=== PATIENT | female | born 1975 | race Hispanic/Latino ===

== ENCOUNTER 2018-06-04 13:40 | Emergency (ER) | payer SELFPAY ==
[2018-06-04 15:57] LABS: BASO # 0.1 K/uL (0.0-0.2); BASO % 1.2 % (0.0-2.0); EOS # 0.2 K/uL (0.0-0.7); HEMOGLOBIN 11.9 g/dL (11.0-16.0); LYMPH # 2.2 K/uL (1.0-4.3); LYMPH % 28.8 % (20.0-40.0); MEAN CELL VOLUME 80.6 fL (81.0-99.0); MEAN CORPUSCULAR HEMOGLOBIN 26.9 pg (27.0-31.0); MEAN CORPUSCULAR HGB CONC 33.4 g/dL (33.0-37.0); MEAN PLATELET VOLUME 7.8 fL (7.2-11.7); MONO # 0.3 K/uL (0.0-0.8); MONO % 3.9 % (0.0-10.0); NEUT # 4.9 K/uL (1.8-7.0); NEUT % 64.1 % (50.0-75.0); NRBC % 0.1 % (0.0-2.0); RBC 4.42 Mil/uL (3.80-5.20); RED CELL DISTRIBUTION WIDTH 15.5 % (11.5-14.5); WHITE BLOOD COUNT 7.6 K/uL (4.8-10.8)
[2018-06-04 16:04] LABS: SQUAMOUS EPITHIAL 2 /hpf (0-5); URINE BACTERIA RARE (<OCC); URINE BILIRUBIN NEGATIVE (NEGATIVE); URINE BLOOD NEGATIVE (NEGATIVE); URINE CLARITY Hazy (Clear); URINE COLOR Amber (YELLOW); URINE GLUCOSE (UA) NORMAL (Normal); URINE LEUKOCYTE ESTERASE 3+ Leu/uL (Negative); URINE PROTEIN NEGATIVE (NEGATIVE); URINE UROBILINOGEN NORMAL mg/dL (0.2-1.0)
[2018-06-04 16:12] LABS: ALB/GLOB RATIO 0.8 (1.0-2.1); ALBUMIN 3.8 g/dL (3.5-5.0); ALT/SGPT 28 U/L (9-52); AST/SGOT 39 U/L (14-36); BLOOD UREA NITROGEN 6 mg/dL (7-17); CALCIUM 9.1 mg/dl (8.6-10.4); GFR NON-AFRICAN AMERICAN > 60
[2018-06-04 16:14] LABS: BARBITURATES, UR NEGATIVE (NEGATIVE); BENZODIAZEPINES, UR NEGATIVE (NEGATIVE); PHENCYCLIDINE, UR NEGATIVE (NEGATIVE)
[2018-06-04 16:16] LABS: OPIATES, UR POSITIVE (NEGATIVE)
--- NOTE | 2018-06-04 17:10 | C.PDOC ---
History Of Present Illness 42 year old female presents to the ED for evaluation of suicide ideation that has worsened since yesterday. Patient admits to using speed ball and heroine, last drug use was 3am last night, and denies usage of other substances. Denies homicidal ideation, hallucinations, fever, nausea, vomiting, and any other associated symptoms. <Jennifer Wild - Last Filed: 06/05/18 19:23> <Tenzin Platt - Last Filed: 06/04/18 21:38> History Per: Patient History/Exam Limitations: no limitations Onset/Duration Of Symptoms: Days Current Symptoms Are (Timing): Still Present <Jennifer Wild - Last Filed: 06/05/18 19:23> Time Seen by Provider: 06/04/18 14:27 Chief Complaint (Nursing): Substance Abuse Past Medical History Vital Signs: Last Vital Signs Temp 98.5 F 06/04/18 17:16 Pulse 67 06/04/18 17:16 Resp 18 06/04/18 17:16 BP 120/79 06/04/18 17:16 Pulse Ox 99 06/04/18 17:16 <Tenzin Platt - Last Filed: 06/04/18 21:38> Reviewed: Historical Data, Nursing Documentation, Vital Signs Vital Signs: Last Vital Signs Temp 98.0 F 06/04/18 14:10 Pulse 79 06/04/18 14:10 Resp 22 06/04/18 14:10 BP 127/80 06/04/18 14:10 Pulse Ox 100 06/04/18 14:10 - Medical History PMH: Bipolar Disorder Family History: States: Unknown Family Hx - Social History Hx Alcohol Use: No Hx Substance Use: Yes - Immunization History Hx Tetanus Toxoid Vaccination: No Hx Influenza Vaccination: No Hx Pneumococcal Vaccination: No <Jennifer Wild - Last Filed: 06/05/18 19:23> Review Of Systems Constitutional: Negative for: Fever, Chills Gastrointestinal: Negative for: Nausea, Vomiting Psych: Positive for: Suicidal ideation. Negative for: Other (homicidal ideation. hallucinations. ) <Jennifer Wild - Last Filed: 06/05/18 19:23> Physical Exam - Physical Exam Appears: Non-toxic, No Acute Distress Skin: Normal Color, Warm, Dry Head: Atraumatic, Normacephalic Eye(s): bilateral: Normal Inspection Oral Mucosa: Moist Neck: Normal ROM, Supple Chest: Symmetrical, No Deformity Cardiovascular: Rhythm Regular, No Murmur Respiratory: Normal Breath Sounds, No Rales, No Rhonchi, No Wheezing Gastrointestinal/Abdominal: Normal Exam, Soft Extremity: Normal ROM (x4) Neurological/Psych: Oriented x3, Normal Speech, Normal Motor, Normal Sensation, Normal Reflexes Gait: Steady <SugeyJennifer asif Oneal - Last Filed: 06/05/18 19:23> ED Course And Treatment - Laboratory Results Result Diagrams: 06/04/18 15:15 06/04/18 15:15 ECG: Interpreted By Me, Viewed By Me ECG Rhythm: Sinus Rhythm (80), Nonspecific Changes Pulse Ox Interpretation: Normal - Radiology CXR: Interpreted by Me, Viewed By Me CXR Interpretation: No: Infiltrates, Fracture, Pnemothorax Progress Note: Pt is medically cleared for transfer to [facility] facility. pt was accepted by dr canas at [facility] <Tenzin Platt - Last Filed: 06/04/18 21:38> - Laboratory Results Result Diagrams: 06/04/18 15:15 06/04/18 15:15 O2 Sat by Pulse Oximetry: 100 (RA) Pulse Ox Interpretation: Normal <SugeytonyshaheenJennifer lennon Oneal Last Filed: 06/05/18 19:23> Medical Decision Making Medical Decision Making: Plan: --Blood sent. --Urinalysis. --Given Macrobid for UTI <Jennifer Wild Oneal - Last Filed: 06/05/18 19:23> Disposition Counseled Patient/Family Regarding: Studies Performed, Diagnosis - Disposition Disposition Time: 19:00 <Tenzin Platt - Last Filed: 06/04/18 21:38> <Jennifer Wild Oneal - Last Filed: 06/05/18 19:23> - Disposition Disposition: OTHER INSTITUTION Condition: FAIR Forms: [facility] (Arabic) - Clinical Impression Clinical Impression: Major depressive disorder, recurrent, unspecified - Scribe Statement The provider has reviewed the documentation as recorded by the Scribe (Jeanna Tamayo) Provider Attestation: All medical record entries made by the Scribe were at my direction and personally dictated by me. I have reviewed the chart and agree that the record accurately reflects my personal performance of the history, physical exam, medical decision making, and the department course for this patient. I have also personally directed, reviewed, and agree with the discharge instructions and disposition. <Jennifer Wild - Last Filed: 06/05/18 19:23>
[2018-06-04 23:11] VITALS: BP 119/71; PULSE 62; RESP 18; TEMP 97.4
--- NOTE | 2018-06-05 08:12 | RAD ---
Chest x-ray single frontal view HISTORY: Psychiatric clearance. COMPARISON: None available. Findings: Bibasilar breast and nipple shadows. Mild venous congestion. Mild bilateral hilar prominence. Heart size within limits. Impression: Bibasilar breast and nipple shadows. Mild venous congestion. Mild bilateral hilar prominence. Heart size within limits.
[2018-06-05 19:23] VITALS: O2SAT 100
== END 2018-06-04 23:37 | disposition designated cancer center or children's hospital (05) ==
LOC: C.ER 13:40
DX: F33.9 Major depressive disorder, recurrent, unspecified (principal); N39.0 Urinary tract infection, site not specified
CPT/HCPCS: 71045; 80053; 81001; 83735; 84100; 85025; 93005; 99285; G0480

== ENCOUNTER 2019-01-01 16:51 | Inpatient (IN) | payer MEDICAID ==
--- NOTE | 2019-01-01 18:41 | C.PDOC ---
History Of Present Illness 43 y/o female presents to the ER requesting detox from heroin. Patient states that she injects heroine and cocaine and her last use was today 4am. Denies having suicidal ideation, homicidal ideation, and other complaints. Time Seen by Provider: 01/01/19 17:40 Chief Complaint (Nursing): Psychiatric Evaluation History Per: Patient History/Exam Limitations: no limitations Onset/Duration Of Symptoms: Days Current Symptoms Are (Timing): Still Present Severity: Moderate Past Medical History Reviewed: Historical Data, Nursing Documentation, Vital Signs Vital Signs: Last Vital Signs Temp 98.5 F 01/01/19 17:05 Pulse 80 01/01/19 17:05 Resp 20 01/01/19 17:05 BP 133/82 01/01/19 17:05 Pulse Ox 98 01/01/19 17:05 Primary Care Provider: FAMILY PROVIDER,NO - Medical History PMH: Bipolar Disorder Denies: Diabetes, Hepatitis, HIV, HTN, Chronic Kidney Disease, Seizures, Sexually Transmitted Disease Other Surgeries: Hx of surgeries - [facility] GROUP PSYCHOTHERAPY (06/04/18) INDIV PSYCHOTHERAPY FOR SUBSTANCE ABUSE, COGNITIV BEHAVIORAL (06/04/18) INDIVIDUAL PSYCHOTHERAPY, COGNITIVE-BEHAVIORAL (06/04/18) Family History: States: No Known Family Hx, Unknown Family Hx - Social History Hx Alcohol Use: No Hx Substance Use: No - Immunization History Hx Tetanus Toxoid Vaccination: No Hx Influenza Vaccination: No Hx Pneumococcal Vaccination: No Review Of Systems Except As Marked, All Systems Reviewed And Found Negative. Constitutional: Negative for: Fever, Chills Cardiovascular: Negative for: Chest Pain Respiratory: Negative for: Shortness of Breath Neurological: Positive for: Headache Physical Exam - Physical Exam Appears: Non-toxic, No Acute Distress Skin: Normal Color, Warm, Dry Head: Atraumatic, Normacephalic Eye(s): bilateral: Normal Inspection Nose: Normal Oral Mucosa: Moist Neck: Supple Chest: Symmetrical Cardiovascular: Rhythm Regular Respiratory: Normal Breath Sounds, No Rales, No Rhonchi, No Wheezing Gastrointestinal/Abdominal: Normal Exam, Soft, No Tenderness, No Guarding, No Rebound Neurological/Psych: Oriented x3, Normal Speech ED Course And Treatment O2 Sat by Pulse Oximetry: 98 (RA) Pulse Ox Interpretation: Normal Medical Decision Making Medical Decision Making: Plan: --Labs --UA Disposition - Disposition Disposition Time: 19:04 Condition: STABLE Forms: [facility] (Macedonian) - POA Present On Arrival: None - Clinical Impression Clinical Impression: Polysubstance abuse - Scribe Statement The provider has reviewed the documentation as recorded by the Scribe Joan Barron Provider Attestation: All medical record entries made by the Scribe were at my direction and personally dictated by me. I have reviewed the chart and agree that the record accurately reflects my personal performance of the history, physical exam, medical decision making, and the department course for this patient. I have also personally directed, reviewed, and agree with the discharge instructions and disposition. Physician Patient Turnover Patient Signed Over To: Bhavin Peck Handoff Comments: pending labs and dispo
[2019-01-01 19:06] LABS: BASO # 0.1 K/uL (0.0-0.2); BASO % 1.2 % (0.0-2.0); EOS # 0.2 K/uL (0.0-0.7); HEMOGLOBIN 11.7 g/dL (11.0-16.0); LYMPH # 2.6 K/uL (1.0-4.3); LYMPH % 29.3 % (20.0-40.0); MEAN CORPUSCULAR HEMOGLOBIN 27.6 pg (27.0-31.0); MEAN CORPUSCULAR HGB CONC 33.3 g/dL (33.0-37.0); MEAN PLATELET VOLUME 8.3 fL (7.2-11.7); MONO # 0.5 K/uL (0.0-0.8); MONO % 6.1 % (0.0-10.0); NEUT # 5.5 K/uL (1.8-7.0); NEUT % 61.4 % (50.0-75.0); NRBC % 0.2 % (0.0-2.0); RBC 4.23 Mil/uL (3.80-5.20); RED CELL DISTRIBUTION WIDTH 15.6 % (11.5-14.5); WHITE BLOOD COUNT 8.9 K/uL (4.8-10.8)
[2019-01-01 19:12] LABS: MEAN CELL VOLUME 82.8 fL (81.0-99.0); SQUAMOUS EPITHIAL 2 /hpf (0-5); URINE BACTERIA RARE (<OCC); URINE BILIRUBIN NEGATIVE (NEGATIVE); URINE BLOOD NEGATIVE (NEGATIVE); URINE CLARITY Clear (Clear); URINE COLOR Yellow (YELLOW); URINE GLUCOSE (UA) NORMAL (Normal); URINE LEUKOCYTE ESTERASE 2+ Leu/uL (Negative); URINE PROTEIN NEGATIVE (NEGATIVE); URINE UROBILINOGEN NORMAL mg/dL (0.2-1.0)
[2019-01-01 19:16] LABS: BLOOD UREA NITROGEN 12 mg/dL (7-17); GFR NON-AFRICAN AMERICAN > 60
[2019-01-01 19:17] LABS: ALB/GLOB RATIO 0.9 (1.0-2.1); ALBUMIN 4.2 g/dL (3.5-5.0); ALT/SGPT 42 U/L (9-52); AST/SGOT 46 U/L (14-36); CALCIUM 9.3 mg/dl (8.6-10.4)
[2019-01-01 19:28] LABS: BARBITURATES, UR NEGATIVE (NEGATIVE); BENZODIAZEPINES, UR NEGATIVE (NEGATIVE); PHENCYCLIDINE, UR NEGATIVE (NEGATIVE)
[2019-01-01 19:30] LABS: OPIATES, UR POSITIVE (NEGATIVE)
--- NOTE | 2019-01-01 20:21 | PCM.BM ---
<KrissChristopher - Last Filed: 01/01/19 20:19> Treatment Plan Problems - Problems identified on initial assessmt denial Date Initiated: 01/01/19 Time Initiated: 20:19 Assessment reference: NA Status: Active defensive coping Date Initiated: 01/01/19 Time Initiated: 20:20 Assessment reference: NA Status: Active chronic low self esteem Date Initiated: 01/01/19 Time Initiated: 20:21 Assessment reference: NA Status: Active Treatment assets and liabiliti Patient Assests: cooperative, ADL independent, negotiates basic needs Patient Liabilities: substance abuse - Milieu Protocol Maintain good personal hygiene: daily Encourage regular showers, daily Remind patient to perform daily oral care, daily Assist patient to perform ADL's Conduct patient checks and document Observation sheet: Q15 minutes Maintain personal safety: every shift Educate patient to report safety concerns to staff, every shift Monitor environment for contraband/sharps Medication safety: Monitor for expected outcome, potential side effects: every shift, Assess barriers to learning: every shift, Assess readiness for medication education: every shift <Zac Lofton - Last Filed: 01/03/19 13:17> - Diagnosis (1) Opioid use disorder Status: Acute Interventions: 01/03/19 13:16 * Assess 7x/week regarding severity of withdrawal * Educate regarding risks, benefits, side effects and alternatives of medications * Use Motivational Interviewing for abstinence * Use CBT for relapse prevention * Medication management for withdrawal symptoms * Encourage medication assisted treatment * (2) Major depressive disorder, recurrent, unspecified Status: Acute Interventions: 01/03/19 13:17 * Assess/adjust medications daily and /or as needed * See patient on an individual basis 7x/week to assess symptoms of depression * Monitor for side effects & effectiveness of medications *
[2019-01-01] MEDS ORDERED: Magnesium Hydroxide Susp 30 ml UD PO PRN (22:07)
--- NOTE | 2019-01-02 09:57 | PCM.PSYCH ---
Initial Psychiatric Evaluation - Initial Psychiatric Evaluation Type of Admission: Voluntary Legal Status: Capacity Chief Complaint (in patient's own words): ""I;m sick" History of Present Illness and Precipitating Events: She is switched form OBS to INPAT bc she was withdrawing bad and received treatment. The pt is seen, chart reviewed, and case discussed. Pt is a 43 year old female , with 3 children living with pts mother, unemployed, and pt is currently living with boyfriend in [place] and has psych history of manic bipolar disorder, depression, suicidal ideation, and PTSD. This is the first time pt has been admitted to detox unit. She was never admitted before to detox, rehab, or sought suboxone treatment. She has been hospitalized in [facility] in 2018 for suicidal ideation. Pt uses 30 bags/day of heroin IV for the past 3 years, but has started 5 years ago. Her last use was yesterday 01/01/19 at night. She uses 1 gram/day of cocaine IV for the past year. Her last use was yesterday 01/01/29 at noon. Pt smokes 1 pdd for the past 20 years. She denies alcohol or other drug use. She feels restless and has headache, N/V, chills, night sweats, and back pain. COWS was 12 and increasing. She had an OD within 6 months. She denies thoughts of hurting herself or others. Feels very depressed, though. SHe had SI recently and also last year She plans to go to [facility] 2 week program and transfer to something [facility] after that. Past psych hx: Bipolar, depression, and PTSD Fam psych hx: Sister has been to [facility] detox. Her mother has anxiety. PMHx: denies No current meds Current Medications: Active Medications Generic Name Dose Route Start Last Admin Trade Name Freq PRN Reason Stop Dose Admin Clonidine HCl 0.1 mg 01/01/19 22:07 Catapres PO Q4 PRN COWS Score More or Equal to 5 Hydroxyzine HCl 50 mg 01/01/19 22:08 Atarax PO Q6H PRN Anxiety Ibuprofen 600 mg 01/01/19 22:07 Motrin Tab PO Q6 PRN Pain, moderate (4-7) Loperamide HCl 2 mg 01/01/19 22:07 Imodium PO Q8 PRN Diarrhea Magnesium Hydroxide 30 ml 01/01/19 22:07 Milk Of Magnesia PO 01/04/19 10:01 BID PRN Constipation Methadone HCl 0 mg 01/02/19 10:00 Methadone PO 01/07/19 09:59 Q24H HEAVEN Taper Mirtazapine 15 mg 01/02/19 22:00 Remeron PO HS HEAVEN Ondansetron HCl 4 mg 01/01/19 22:07 Zofran Tab PO Q8 PRN Nausea/Vomiting Pneumococcal Polyvalent Vaccine 0.5 ml 01/04/19 10:00 Pneumovax 23 Vaccine IM 01/04/19 10:01 .ONCE ONE Quetiapine Fumarate 100 mg 01/02/19 09:56 Seroquel PO HS PRN Insomnia Trazodone HCl 100 mg 01/01/19 22:09 Desyrel PO HS PRN Sleep Past Psychiatric History - Past Psychiatric History Previous Treatment History: Inpatient Pertinent Medical Hx (Current Medical&Sleep Prob, Allergies): Allergies Allergy/AdvReac Type Severity Reaction Status Date / Time No Known Allergies Allergy Verified 01/01/19 17:08 No Known Home Med 01/01/19 Review of Systems - Psychiatric Psychiatric: Abnormal Sleep Pattern, Anhedonia, Anxiety, Change in Appetite, Depression, Difficulty Concentrating. absent: Hallucinations, Homicidal Ideation, Suicidal Ideation Mental Status Examination - Personal Presentation Personal Presentation: Looks older than stated age (much older) - Affect Affect: Constricted - Reliability in Providing Information Reliability in Providing Information: Good - Speech Speech: Organized - Mood Mood: Depressed, Anxious - Formal Thought Process Formal Thought Process: No Impairment - Cognitive Functions Orientation: Person, Place, Situation, Time Sensorium: Drowsy Attention/Concentration: Easily distracted Estimate of Intelligence: Below average Judgement: Intact, as evidence by: Insight regarding need for hospitalization Memory: Recent intact, as evidence by: Ability to recall events of the day, Remote impaired as evidenced by: Inability to recall sig life events - Risk Risk: Withdrawal, Diminished functioning - Strength & Assets Inventory Strength & Assets Inventory: Cooperative DSM 5 DX - DSM 5 DSM 5 Diagnosis: Opioid withdrawal Opioid use d/o - severe Major depression, recurrent, severe PTSD Cocaine use d/o - severe - Recommended/Plan of Treatment Treatment Recommendations and Plan of Treatment: Taper with methadone Remeron for depression Seroquel same + insomnia Gabapentin for augmentation if needed As needed medications All risks, benefits and alternatives of the meds discussed, and the pt agreed and understood. Attend groups and activities Supportive therapy and psychoeducation [place] for abstinence CBT for relapse prevention Encourage MAT Refer to rehab or IOP, and self-help groups Teach healthy lifestyle methods, i.e. diet, exercise, meditation Smoking cessation with [place] Nicotine patch if needed 34 min Projected ELOS: 4 days - Smoking Cessation Smoking Cessation Initiated: Yes
--- NOTE | 2019-01-03 11:44 | PCM.PYCHPN ---
Psychiatric Progress Note - Psychiatric Progress Note Patient seen today, length of contact: 16 min Patient Chief Complaint: "I can't sleep at all" Problems Identified/Issues Discussed: The pt is seen, chart reviewed, case discussed with staff. Support and psychoeducation given, CBT and KS used briefly Pt is improving slowly and needs more time, still has ongoing symptoms. No SEs from medications, risks discussed. After care discussed Medication Change: Yes (detox changes daily) Medical Record Reviewed: Yes Mental Status Examination - Cognitive Function Orientation: Person, Place, Situation, Time Memory: Impaired Attention: Poor Concentration: Poor Association: WNL Fund of Knowledge: Poor - Mood Mood: Depressed, Anxious - Affect Affect: Constricted - Speech Speech: Appropriate - Formal Thought Process Formal Thought Process: No Impairment - Suicidal Ideation Suicidal Ideation: No - Homicidal Ideation Homicidal Ideation: No Goal/Treatment Plan - Goal/Treatment Plan Need for Continued Stay: Discharge may exacerbated symptoms, Severe functional impairment Progress Toward Problem(s) and Goals/Treatment Plan: Taper with methadone Remeron for depression Seroquel same + insomnia Gabapentin for augmentation if needed As needed medications All risks, benefits and alternatives of the meds discussed, and the pt agreed and understood. Attend groups and activities Supportive therapy and psychoeducation [place] for abstinence CBT for relapse prevention Encourage MAT Refer to rehab or IOP, and self-help groups Teach healthy lifestyle methods, i.e. diet, exercise, meditation Smoking cessation with [place] Nicotine patch if needed
[2019-01-04] MEDS ORDERED: Buprenorphine Hydrochloride 2 mg SL ONE ×2 (03:20→14:08)
[2019-01-04] MEDS ORDERED: Pneumococcal 23-Valent Vaccine IM ONE (10:00)
--- NOTE | 2019-01-04 12:11 | PCM.PYCHPN ---
Psychiatric Progress Note - Psychiatric Progress Note Patient seen today, length of contact: 16 min Patient Chief Complaint: "I can't sleep at all" Problems Identified/Issues Discussed: The pt is seen again, chart reviewed, and case is discussed with the team. The pt denies any side-effects from meds. Attends activities and groups, brief individual therapy provided Not ready for discharge due to ongoing symptoms and high relapse risk. After care discussed again. She was about to leave AMA last night but her BF convinced her to stay, bond writer also gave reassurance and prn meds to help her calm down. She was having panic attacks Medication Change: Yes (detox changes daily) Medical Record Reviewed: Yes Mental Status Examination - Cognitive Function Orientation: Person, Place, Situation, Time Memory: Impaired Attention: Poor Concentration: Poor Association: WNL Fund of Knowledge: Poor - Mood Mood: Depressed, Anxious - Affect Affect: Constricted - Speech Speech: Appropriate - Formal Thought Process Formal Thought Process: No Impairment - Suicidal Ideation Suicidal Ideation: No - Homicidal Ideation Homicidal Ideation: No Goal/Treatment Plan - Goal/Treatment Plan Need for Continued Stay: Discharge may exacerbated symptoms, Severe functional impairment Progress Toward Problem(s) and Goals/Treatment Plan: Taper with methadone Remeron for depression Seroquel same + insomnia Gabapentin for augmentation if needed As needed medications All risks, benefits and alternatives of the meds discussed, and the pt agreed and understood. Attend groups and activities Supportive therapy and psychoeducation [place] for abstinence CBT for relapse prevention Encourage MAT Refer to rehab or IOP, and self-help groups Teach healthy lifestyle methods, i.e. diet, exercise, meditation Smoking cessation with [place] Nicotine patch if needed
--- NOTE | 2019-01-06 02:05 | PCM.PYCHPN ---
Psychiatric Progress Note - Psychiatric Progress Note Patient seen today, length of contact: 16 min Patient Chief Complaint: "I can't sleep at all" Problems Identified/Issues Discussed: The pt is seen again, chart reviewed, and case is discussed with the team. The pt denies any side-effects from meds. Attends activities and groups, brief individual therapy provided Not ready for discharge due to ongoing symptoms and high relapse risk. After care discussed again. She was about to leave AMA last night but her BF convinced her to stay, senior underwriter also gave reassurance and prn meds to help her calm down. She was having panic attacks Medication Change: Yes (detox changes daily) Medical Record Reviewed: Yes Mental Status Examination - Cognitive Function Orientation: Person, Place, Situation, Time Memory: Impaired Attention: Poor Concentration: Poor Association: WNL Fund of Knowledge: Poor - Mood Mood: Depressed, Anxious - Affect Affect: Constricted - Speech Speech: Appropriate - Formal Thought Process Formal Thought Process: No Impairment - Suicidal Ideation Suicidal Ideation: No - Homicidal Ideation Homicidal Ideation: No Goal/Treatment Plan - Goal/Treatment Plan Need for Continued Stay: Discharge may exacerbated symptoms, Severe functional impairment Progress Toward Problem(s) and Goals/Treatment Plan: Taper with methadone Remeron for depression Seroquel same + insomnia Gabapentin for augmentation if needed As needed medications All risks, benefits and alternatives of the meds discussed, and the pt agreed and understood. Attend groups and activities Supportive therapy and psychoeducation [place] for abstinence CBT for relapse prevention Encourage MAT Refer to rehab or IOP, and self-help groups Teach healthy lifestyle methods, i.e. diet, exercise, meditation Smoking cessation with [place] Nicotine patch if needed
[2019-01-06 06:49] VITALS: O2SAT 99
--- NOTE | 2019-01-06 08:54 | PCM.PYCHDC ---
Mental Status Examination - Mental Status Examination Orientation: Person Discharge Summary - Discharge Note Consultations:: List each consultation separately and include: 1. Reason for request. 2. Findings. 3. Follow-up Summary of Hospital Course include:: 1. Description of specific treatment plan utilized for patients during their course of treatmen. 2. Summarize the time- course for resolution of acute symptoms and/or regressed behaviors. 3. Describe issues identified and worked on during hospitalization. 4. Describe medication utilized. 5. Describe medical problems identified and treated. 6. Reassessment of suicide risk Summary of Hospital Course: She is switched form OBS to INPAT bc she was withdrawing bad and received treatment. The pt is seen, chart reviewed, and case discussed. Pt is a 43 year old female , with 3 children living with pts mother, unemployed, and pt is currently living with boyfriend in [place] and has psych history of manic bipolar disorder, depression, suicidal ideation, and PTSD. This is the first time pt has been admitted to detox unit. She was never admitted before to detox, rehab, or sought suboxone treatment. She has been hospitalized in [facility] in 2018 for suicidal ideation. Pt uses 30 bags/day of heroin IV for the past 3 years, but has started 5 years ago. Her last use was yesterday 01/01/19 at night. She uses 1 gram/day of cocaine IV for the past year. Her last use was yesterday 01/01/29 at noon. Pt smokes 1 pdd for the past 20 years. She denies alcohol or other drug use. She feels restless and has headache, N/V, chills, night sweats, and back pain. COWS was 12 and increasing. She had an OD within 6 months. She denies thoughts of hurting herself or others. Feels very depressed, though. SHe had SI recently and also last year She plans to go to [facility] 2 week program and transfer [facility] after that. Past psych hx: Bipolar, depression, and PTSD Fam psych hx: Sister has been to [facility] detox. Her mother has anxiety. PMHx: denies No current meds She went to [facility]. Tried to leave AMA twice but agreed to stay - Diagnosis (1) Opioid use disorder Current Visit: Yes Status: Acute (2) Major depressive disorder, recurrent, unspecified Current Visit: No Status: Acute - Final Diagnosis (DSM 5) Condition upon Discharge: STABLE Disposition: HOME/ ROUTINE Follow-up Treatment Plan: Taper with methadone Remeron for depression Seroquel same + insomnia Gabapentin for augmentation if needed As needed medications All risks, benefits and alternatives of the meds discussed, and the pt agreed and understood. Attend groups and activities Supportive therapy and psychoeducation [place] for abstinence CBT for relapse prevention Encourage MAT Refer to rehab or IOP, and self-help groups Teach healthy lifestyle methods, i.e. diet, exercise, meditation Smoking cessation with [place] Nicotine patch if needed Prescriptions/Medication Reconciliation: hydrOXYzine HCl [Atarax] 50 mg PO DAILY PRN #30 tab PRN Reason: Anxiety Mirtazapine [Remeron] 15 mg PO HS #30 tab
[2019-01-06 09:06] VITALS: BP 122/86; PULSE 88; RESP 18; TEMP 97.4
== END 2019-01-06 09:15 | disposition home or self-care (01) | DRG 430 ==
LOC: C.ER 16:51 → C.7D 19:51 → OBSVTOIN 01-02 10:25
PROVIDERS: ADMIT Psychiatry & Neurology Psychiatry; ATTEND Psychiatry & Neurology Psychiatry
DX: F33.2 Major depressive disorder, recurrent severe without psychotic features (principal); F11.23 Opioid dependence with withdrawal; F14.90 Cocaine use, unspecified, uncomplicated; F41.0 Panic disorder [episodic paroxysmal anxiety]; F43.10 Post-traumatic stress disorder, unspecified; G47.00 Insomnia, unspecified